=== PATIENT | male | born 1930 | race Caucasian/White ===

== ENCOUNTER 2017-07-08 15:48 | Emergency (ER) | payer MEDICARE, OTHER ==
[~2017-07-08] VITALS: Ht 182.9 cm; Wt 72.7 kg
[~2017-07-08 15:48] MED LIST: AMLO10 PO; ANTIDEPRESSANT PO; PERC5TAB12 PO; ZOCO40TA PO
[2017-07-08 15:50] VITALS: BP 150/79; PULSE 66; RESP 16; TEMP 98.5; O2SAT 95
[2017-07-08] MEDS ORDERED: DIPHTH/TETANUS/ACEL PERTUSSIS (BOOSTER) 0.5 ML VIAL/PFS IM ONE (16:00)
[2017-07-08] MEDS ORDERED: LIDOCAINE HCL 1% 50 ML VIAL INFIL ONE (16:00)
[2017-07-08] MEDS ORDERED: LIDOCAINE HCL 1% PF 30 ML VIAL ONE (16:14)
--- NOTE | 2017-07-08 16:21 | PD ---
HPI Chief Complaint: Fall Time Seen by Provider: 15:53 Travel History International Travel<30 days: No Contact w/Intl Traveler<30days: No Traveled to known affect area: No History of Present Illness HPI Patient is an 87-year-old male who presents to the ER after he tripped and fell today. Patient reports that he was walking from his car across concrete to the bank. Patient reports that he tripped and fell onto the concrete, reports that he landed on his face. Patient reports that he currently is not on any anticoagulants, denies any loss of consciousness after the accident. Patient denies any neck pain, denies any chest pain or shortness of breath. Patient with no abdominal pain, no pelvic pain or no pain with ambulation. Patient does ambulate with a cane, reports that he was able to ambulate after he fell. PFSH Past Medical History Arthritis: No Asthma: No Autoimmune Disease: No Blood Disorders: No Anxiety: No Depression: Yes Heart Rhythm Problems: No Cancer: No Cardiovascular Problems: No High Cholesterol: No Chemotherapy: No Chest Pain: No Congestive Heart Failure: No COPD: No Cerebrovascular Accident: No Diabetes: No Diminished Hearing: No Endocrine: No Gastrointestinal Disorders: No GERD: No Glaucoma: No Genitourinary: No Headaches: No Hepatitis: No Hiatal Hernia: No Hypertension: No Immune Disorder: No Kidney Stones: No Musculoskeletal: Yes (multiple sclerosis) Neurologic: Yes Psychiatric: No Respiratory: No Myocardial Infarction: No Radiation Therapy: No Renal Failure: No Seizures: No Sickle Cell Disease: No Sleep Apnea: No Thyroid Disease: No Ulcer: No Past Surgical History Abdominal Surgery: No AICD: No Cardiac Surgery: No Ear Surgery: No Endocrine Surgery: No Eye Surgery: No Genitourinary Surgery: No Gynecologic Surgery: No Joint Replacement: No Neurologic Surgery: No Oral Surgery: No Pacemaker: No Thoracic Surgery: No Other Surgery: No Social History Alcohol Use: Yes (1 BEER DAILY) Tobacco Use: No Substance Use: No Allergies-Medications (Allergen,Severity, Reaction): Coded Allergies: penicillin G (Verified Allergy, Severe, Facial swelling, 07/08/17) Reported Meds & Prescriptions Reported Meds & Active Scripts Active Active Prescriptions or Reported Medications Unobtainable Review of Systems General / Constitutional: No: Fever Eyes: No: Visual changes HENT: No: Headaches, Lightheadedness, Neck Pain Cardiovascular: No: Chest Pain or Discomfort Respiratory: No: Shortness of Breath Gastrointestinal: No: Abdominal Pain Genitourinary: No: Dysuria Musculoskeletal: No: Pain Skin: No Rash Neurologic: No: Weakness Psychiatric: No: Depression Endocrine: No: Polydipsia Hematologic/Lymphatic: No: Easy Bruising Physical Exam Narrative GENERAL: Mild distress SKIN: Focused skin assessment warm/dry. Patient HEAD: Normocephalic. Patient with 2 facial lacerations to left pentecostalism: 2cm (c- shaped laceration) and 1cm left cheek Patient with abrasions to right knee EYES: Pupils equal and round. No scleral icterus. No injection or drainage. ENT: No nasal bleeding or discharge. Mucous membranes pink and moist. NECK: Trachea midline. No JVD. CARDIOVASCULAR: Regular rate and rhythm. No murmur appreciated. RESPIRATORY: No accessory muscle use. Clear to auscultation. Breath sounds equal bilaterally. GASTROINTESTINAL: Abdomen soft, non-tender, nondistended. Hepatic and splenic margins not palpable. MUSCULOSKELETAL: No obvious deformities. No clubbing. No cyanosis. No edema. NEUROLOGICAL: Awake and alert. No obvious cranial nerve deficits. Motor grossly within normal limits. Normal speech. PSYCHIATRIC: Appropriate mood and affect; insight and judgment normal. Data Data Last Documented VS Vital Signs Date Time Temp Pulse Resp B/P (MAP) Pulse Ox O2 Delivery O2 Flow Rate FiO2 07/08/17 15:50 98.5 66 16 150/79 (102) [address] Brain W/O Iv Contrast(Rout) (07/08/17 15:54) Ct Cerv Spine W/O Contrast (07/08/17 15:54) Psha-Uun-Xahcmo (Booster) Inj (Boostrix (07/08/17 16:00) Lidocaine 1% Inj (50 Ml) (Xylocaine 1% I (07/08/17 16:00) Lidocaine Pf 1% Inj (Xylocaine-Mpf 1% In (07/08/17 16:14) Bacitracin Oint Packet (Bacitracin Oint (07/08/17 17:15) Wound Care (07/08/17 17:13) MDM Medical Decision Making Medical Screen Exam Complete: Yes Emergency Medical Condition: Yes Medical Record Reviewed: Yes Interpretation(s) Vital Signs Date Time Temp Pulse Resp B/P (MAP) Pulse Ox O2 Delivery O2 Flow Rate FiO2 07/08/17 15:50 98.5 66 16 150/79 (700) 41 Differential Diagnosis ICH, facial laceration, abrasions to face and knee Narrative Course 87-year-old male with history of multiple sclerosis, currently not on any anticoagulants, presents the emergency room with complaints of mechanical fall causing a laceration to his face as well as abrasions to his knee. Patient with no loss of consciousness, patient with no complaints at this time. Patient was able to ambulate after his fall today. During the course of the patients emergency department visit, the patients history, examination, and differential diagnosis were reviewed with the patient. The patient was placed on a conveyor monitor with oximetry and frequent blood pressure monitoring. The patient was initially provided boostrix Radiology studies were reviewed and remarkable for: Last Impressions Head CT 07/08/17 1559 Signed Impressions: Service Date/Time: Thursday, July 08, 2017 16:05 - CONCLUSION: 1. Periventricular areas of decreased attenuation consistent with small vessel ischemic disease or demyelination. 2. No acute infarct, acute hemorrhage midline shift or extra axial fluid collections. 3. Mild cerebral atrophy. Andrés Garcia MD CT of the cervical spine show degenerative changes, no fracture appreciated. Patient sutures were sutured using 5.0 prolene, patient will return to the emergency room or to his primary care doctor in 7 days for suture removal I reviewed all labs and all studies with patient in detail, patient will return to emergency room as instructed. Procedures Procedure Narrative LACERATION LOCATION: left pentecostalism LENGTH: 2cm, 1cm NUMBER OF STITCHES/ELI: 5 sutures REPAIR: The area of the laceration was prepped with Betadine and sterilely draped. The laceration was infiltrated with 1% lidocaine. The wound was copiously irrigated and explored without evidence of foreign body, tendon injury or neurovascular injury. The wound was closed using 5.0 vicryl. This was a single layer repair. A sterile dressing was applied. The patient was advised to keep the dressing clean and dry. Patient tolerated the procedure well. Diagnosis Primary Impression: Head injury Additional Impression: Laceration of face, multiple sites Patient Instructions: Acute Wound Care (GEN) Additional Instructions: Please provide patient with a copy of his studies at discharge Please follow up with your primary care doctor in 2-3 days Return to the ER if symptoms worsen or progress Return to the ER as needed Sutures to be removed in [address] bac[address]racin to wounds Scripts Unable to Obtain Active Prescriptions or Reported Meds Disposition: 01 DISCHARGE HOME Condition: Stable Nallely Matos DO Jul 08, 2017 16:21
--- NOTE | 2017-07-08 16:40 | RADRPT ---
EXAM DATE/TIME: 07/08/2017 16:05 [facility] COMPARISON: No previous studies available for comparison. INDICATIONS : Trauma, fall today. Laceration to left forehead. RADIATION DOSE: 66.20 CTDIvol (mGy) MEDICAL HISTORY : Multiple sclerosis. SURGICAL HISTORY : None. ENCOUNTER: Initial ACUITY: 1 day PAIN SCALE: 3/10 LOCATION: Bilateral head TECHNIQUE: Multiple contiguous axial images were obtained of the head. Using automated exposure control and adj ustment of the mA and/or kV according to patient size, radiation dose was kept as low as reasonably a chievable to obtain optimal diagnostic quality images. DICOM format image data is available electro nically for review and comparison. FINDINGS: Periventricular areas of decreased attenuation are noted consistent with small vessel ischemic diseas e or demyelination. There is no acute infarct, acute hemorrhage, midline shift or extra-axial fluid c ollections. Mild cerebral atrophy is noted. CONCLUSION: 1. Periventricular areas of decreased attenuation consistent with small vessel ischemic disease or de myelination. 2. No acute infarct, acute hemorrhage midline shift or extra axial fluid collections. 3. Mild cerebral atrophy. Andrés Garcia MD on July 08, 2017 at 16:35 Board Certified Radiologist. This report was verified electronically.
--- NOTE | 2017-07-08 17:05 | RADRPT ---
EXAM DATE/TIME: 07/08/2017 16:05 [facility] COMPARISON: No previous studies available for comparison. INDICATIONS : Trauma, fall today. Laceration to left forehead. RADIATION DOSE: 26.54 CTDIvol (mGy) MEDICAL HISTORY : Multple sclerosis. SURGICAL HISTORY : None. ENCOUNTER: Initial ACUITY: 1 day PAIN SCALE: 3/10 LOCATION: Bilateral neck TECHNIQUE: Volumetric scanning of the cervical spine was performed. Multiplanar reconstructions in the sagittal, coronal and oblique axial planes were performed. Using automated exposure control and adjustment o f the mA and/or kV according to patient size, radiation dose was kept as low as reasonably achievable to obtain optimal diagnostic quality images. DICOM format image data is available electronically f or review and comparison. FINDINGS: VERTEBRAE: Normal vertebral body height. ALIGNMENT: Minimal subluxation C3 on C4.. C2-C3: Mild facet degenerative changes on the right. No fracture or spinal stenosis. C3-C4: Moderate facet degenerative changes on the left with significant neural foramina encroachment. Mild spinal stenosis. C4-C5: Moderate interspace ridging with moderate left-sided facet disease. Moderate left-sided neuroforamin al encroachment. Moderate left-sided facet disease C5-C6: Mild uncinate ridging with minimal left-sided facet disease. C6-C7: Mild uncinate ridging with minimal bilateral neural foramina encroachment worse on the left. C7-T1: The bony spinal canal is normal in size. No evidence of disc bulge or herniation. Mild facet diseas e is evident. The neural foramina are bilaterally patent. CONCLUSION: Degenerative changes probably facet with minimal subluxation. Fracture is not appreciated. There is no central spinal stenosis. Controlled flexion extension films may be of benefit to exclude instability. Ish Zaidi MD FACR on July 08, 2017 at 16:48 Board Certified Radiologist. This report was verified electronically.
[2017-07-08] MEDS ORDERED: BACITRACIN OINT 0.9 GM PKT TOPICAL ONE (17:15)
== END 2017-07-08 17:45 | disposition home or self-care (01) ==
LOC: PHED 15:48
DX: S01.81XA Laceration without foreign body of other part of head, initial encounter (principal); S01.412A Laceration without foreign body of left cheek and temporomandibular area, initial encounter; S09.90XA Unspecified injury of head, initial encounter; S80.211A Abrasion, right knee, initial encounter; G35 Multiple sclerosis; F32.9 Major depressive disorder, single episode, unspecified; W01.0XXA Fall on same level from slipping, tripping and stumbling without subsequent striking against object, initial encounter; Z23 Encounter for immunization; Z88.0 Allergy status to penicillin
CPT/HCPCS: 12013; 70450; 72125; 90715